=== PATIENT | female | born 1990 | race Caucasian/White ===

== ENCOUNTER 2024-11-24 16:47 | Emergency (ER) | payer OTHER, SELFPAY ==
[2024-11-24 16:55] VITALS: BP 129/85; PULSE 132; RESP 32; O2SAT 98; BMI 28.5
--- NOTE | 2024-11-24 17:08 | ED_ITS ---
HPI - General Adult General Chief complaint: Psychiatric Problem/Disorder Stated complaint: Mental Health Time Seen by Provider: 11/24/24 16:53 History of Present Illness HPI narrative: Patient is a 34-year-old woman who has a history of anxiety in sees a therapist. She does not take any medications but states that her anxiety depression is gotten somewhat worse and she is having hard time functioning. She has no chest pain shortness a breath orthopnea or PND. She has not had recent suicidal ideation. She has no history of any self-harm is not been a psychiatric facility in the past. Patient is safe at home and she is not using alcohol or street drugs. Related Data Previous Rx's ?Medication ?Instructions ?Recorded sertraline 25 mg tablet (Zoloft) 25 mg PO DAILY #30 ta bs 11/24/24 Allergies Allergy/AdvReac Type Severity Reaction Status Date / Time No Known Drug Allergies Allergy Verified 11/24/24 16:53 PFSH PFSH Social History Smoking Status: Never smoker Do you use any of these nicotine containing products: None How often do you have a drink containing alcohol: never AUDIT-C Alcohol total score: 0 Non-prescribed substance use: denies use Exam Narrative: Exam Narrative: EXAM GENERAL: Patient appears comfortable and well. EYES: No scleral icterus. LYMPH: No supraclavicular or cervical lymphadenopathy. SKIN: Visible skin seen during exam normal or with benign process only. EXT: No dependent lower extremity pedal edema. HEART: Regular rate and rhythm with no murmurs, rubs, or gallops. LUNGS: Clear to auscultation bilaterally with no crackles or wheezes. ABD: Soft, non tender, non distended. PSYCH: Good eye contact, speech is not pressured. Const: Vital Signs, click to edit/add: Vital Signs - 24 hr 11/24/24 16:55 Pulse Rate [Pulse Oximeter] 132 H Respiratory Rate 32 H Blood Pressure [Ri ght Upper Arm] 129/85 Pulse Oximetry 98 Oxygen Delivery Me thod Room Air Course Course ED Course: Patient seen examined. Toxicology workup underway. Psychiatric consultation obtained. Vital Signs Vital signs: Initial Vital Signs Pulse Rate 132 H 11/24/24 16:55 Respiratory Rate 32 H 11/24/24 16:55 Blood Pressure 129/85 11/24/24 16:55 Blood Pressure Mean 99 11/24/24 16:55 Pulse Oximetry 98 07/25/25 16:55 Oxygen Delivery Method Room Air 11/24/24 16:55 Vital Signs Pulse Rate 132 H 11/24/24 16:55 Respiratory Rate 32 H 11/24/24 16:55 Blood Pressure 129/85 11/24/24 16:55 Pulse Oximetry 98 11/24/24 16:55 Oxygen Delivery Method Room Air 11/24/24 16:55 Pulse Rate 132 H 11/24/24 16:55 Respiratory Rate 32 H 11/24/24 16:55 Blood Pressure 129/85 11/24/24 16:55 Pulse Oximetry 98 11/24/24 16:55 Oxygen Delivery Method Room Air 11/24/24 16:55 Medical Decision Making MDM Narrative Medical decision making narrative: Patient presents very anxious and depressed but not suicidal. I did have her see the behavioral health provider and we feel like the patient is safe to go home. Her toxicology workup is negative. She does see a therapist. At this time I did treated with short course of Ativan that she can take twice a day as needed and I did place her on Zoloft 25 mg daily. She will see me back in the office this week and will establish primary care and try to get her feeling better. She does contract for safety. Lab Data Labs: Lab Results 11/24/24 11/24/24 Range/Units 17:30 17:43 WBC 8.60 (4.50-11.00) K/uL RBC 4.53 (4.00-5.20) m/uL Hgb 12.8 (12.0-16.0) gm/dL Hct 38.4 (33.0-51.0) % MCV 85 (80-100) fL MCH 28 (26-34) pg MCHC 33 (32-36) gm/dL RDW Coeff of Silvano 11.8 (11.5-15.5) % Plt Count 259 (140-440) K/uL Neut % (Auto) 77.0 H (42.0-72.0) % Lymph % (Auto) 15.8 L (20-44) % [place] % (Auto) 4.7 (0.0-11.0) % Eos % (Auto) 2.1 (0.0-7.0) % Baso % (Auto) 0.3 (0.0-3.0) % Neut # (Auto) 6.60 (1.7-7.0) K/uL Lymph # (Auto) 1.40 (0.90-2.90) K/uL [place] # (Auto) 0.40 (0.00-0.90) K/UL Eos # (Auto) 0.18 (0.00-0.50) K/uL Baso # (Auto) 0.03 (0.00-0.30) K/uL Abs Immat Gran (auto) 0.01 (0.00-0.30) K/uL Imm/Tot Granulo (auto) 0.1 % Sodium 138 (135-149) mmol/L Potassium 4.1 (3.6-5.1) mmol/L Chloride 103 (96-114) mmol/L Carbon Dioxide 26 (20-32) mmol/L Anion Gap 9 (7-15) mEq/L BUN 10 (5-24) mg/dL Creatinine 0.8 (0.5-1.5) mg/dL Estimated Creat Clear 82.74 Estimated GFR 100 ml/min Glucose 99 (60-115) mg/dL Calcium 9.8 (8.4-10.6) mg/dL Total Bilirubin 0.7 (0.1-1.5) mg/dL AST 50 H (12-35) U/L ALT 16 (4-35) U/L Alkaline Phosphatase 70 (40-150) U/L Total Protein 8.3 (6.0-8.3) g/dL Albumin 4.6 (3.3-5.0) g/dL HCG, Qual Negative (Negative) Urine Color Yellow (Yellow) Urine Appearance Clear (Clear) Urine pH 6.5 (5.0-8.5) Ur Specific [place] 1.015 (1.000-1.030) Urine Protein Negative (Negative) Urine Glucose (UA) Negative (Negative) Urine Ketones 2+ A (Negative) Urine Blood Trace-intact A (Negative) Urine Nitrite Negative (Negative) Urine Bilirubin Negative (Negative) Urine Urobilinogen 0.2 (0.2-1.0) Ur Leukocyte Esterase 1+ A (Negative) Urine RBC 0-2 (0-2) Urine WBC 2-5 (0-5) Ur Squamous Epith Cells Moderate A (None-Few) Urine Bacteria Few A (None) Salicylates < 1.0 L (1.0-10) mg/dL Acetaminophen < 10.0 (10.0-30.0) ug/mL Ethyl Alcohol < 0.01 (0.01-0.03) % Discharge Plan Discharge Clinical Impression: Depression Patient Disposition: Home, Self-Care Condition: Stable Instructions: Depression (ED) Additional Instructions: Ativan twice daily as needed for severe symptoms. Zoloft as directed. Follow-up [facility] and this coming week. Return if symptoms worsen. Activity Level: No Restrictions Discharge Diet: Regular Prescriptions: New sertraline [Zoloft] 25 mg tablet 25 mg PO DAILY Qty: 30 2RF Follow Up/Referrals: Provider,Not a Local [Primary Care Provider, Family Practice] Stand Alone Forms: [employer] Info Instructions
--- OUTSIDE RECORDS SUMMARY | 2024-11-24 17:32 | XMS_ITS | Clinical Summary ---
Author Organization [facility] Address [address] [place] [address] Care Team Providers Care Risk Adjustment Specialist Name Role Phone Unavailable Primary Care Provider Unavailabl e Source Comments Patient records contain information from all sites at [facility]. For routine questions regarding patient records, call [phone] during business hours, M-F 8:00 AM - 5:00 PM Central Time. Record requests for emergency care only can be directed to [phone] at any time.[facility] Allergies No known active allergies Medications * This document contains information received from the source organization and may not represent a complete record from that organization. valACYclovir (VALTREX) 1000 mg tablet Take 2 tablets by mouth 2 (two) times a day. 05/04/2023 Active Isibloom 0.15-0.03 mg per tabletIndicatio ns:Management Contraceptive,P olycystic Ovary Syndrome TAKE 1 TABLET BY MOUTH DAILY 84 tablet 4 07/21/2024 Active Active Problems Problem Noted Date Diagnosed Date Body Mass Index 29.0 To 29.9 Adult 07/06/2023 Overview (07/06/2023): Rx for phentermine sent 04/23/2022. Weight 91 kg/BMI 35.55 on 04/16/2022. 05/28/2022: Weight 86.1 kg/BMI 33.65. 06/30/2022: Weight 84.0 kg. 12/25/2022: Weight 84.0 kg. One month supply of phentermine with 2 refills was faxed in to her pharmacy. 07/06/2023: Weight 85 kg/BMI 29.55. She has been off the phentermine since early May,. Continues to work with a geriatric personal care aide 2 times per week and monitor caloric intake, but has gained weight since discontinuing the phentermine and is frustrated. Lowest weight has been 81 kg, noted the beginning of May. She is interested in referral for further discussion and education as well as options for weight loss. Weight clinic referral to dietitian and mutuel clerk was ordered. She will schedule at her convenience. Preventive Gynecological Exam 04/18/2021 Overview (04/16/2022): Pap Smear: 04/16/2022 obtained and pending. No history of abnormal. Gonorrhea/Chlamydia Screen: Declined. Mammogram: Begin at age 40. Lipid panel: Ordered and scheduled. Diabetic screening: Ordered and scheduled. Colon screening: Begin at age 45. DEXA Scan: Begin at age 65. HPV Vaccine: Declined. Tdap Vaccine: 2017 Influenza Vaccine: 2021 at school. COVID-19 Vaccine: Moderna: 03/14/2021, 07/10/2020, 06/12/2020. COVID 19 booster: Moderna: 03/03/2022. - Discussed the importance of healthy diet and exercise for overall well-being. - Recommend at least 30 minutes of aerobic exercise most days of the week. - Recommend 1200 mg of calcium daily. 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 I will plan to call her at [phone] after 3:00 p.m. with her Pap smear and lab results. She is already received her flu shot for the year, at school. She is contemplating Human Papilloma Virus vaccination and will let me know if she desires initiation of this immunization. I recommend she return in 1 year for annual preventative health exam or sooner if she is any concerns or problems. Management Contraceptive 04/18/2021 Overview (09/10/2021): Experienced breakthrough bleeding on Seasonale. Switched to Apri 09/10/2021. Follow-up in 1 year or sooner with any concerns. Polycystic Ovary Syndrome 03/29/2019 Overview (04/16/2022): Managing effectively with her control pill. Resolved Problems Problem Noted Date Diagnosed Date Resolved Date Obesity Body Mass Index 30-39.9 Adult 04/23/2022 07/06/2023 Overview (07/06/2023): Rx for phentermine sent 04/23/2022. Weight 91 kg/BMI 35.55 on 04/16/2022. 05/28/2022: Weight 86.1 kg/BMI 33.65. 06/30/2022: Weight 84.0 kg. 12/25/2022: Weight 84.0 kg. One month supply of phentermine with 2 refills was faxed in to her pharmacy. 07/06/2023: Weight 85 kg/BMI 29.55. She has been off the phentermine since early May,. Continues to work with a geriatric personal care aide 2 times per week and monitor caloric intake, but has gained weight since discontinuing the phentermine and is frustrated. Lowest weight has been 81 kg, noted the beginning of May. She is interested in referral for further discussion and education as well as options for weight loss. Weight clinic referral to dietitian and mutuel clerk was ordered. She will schedule at her convenience. Immunizations Immunization Administration Dates Next Due Influenza, Injectable, Quadrivalent 02/04/2021 influenza vaccine quad (FLUZ ONE/FLUARIX) (6 months and older)(PF) 02/23/2020 Family History Medical History Relation Name Comments No Known Problems Father Heart disease Maternal Grandfather Thrombocytopenia Mother Lung disease Paternal Grandfather No Known Problems Paternal Grandmother No Known Problems Sister 1 Romy Endometriosis Sister 2 Asha Relation Name Status Comments Father Alive Maternal Grandfather Maternal Grandmother Mother Alive Paternal Grandfather Paternal Grandmother Alive Sister 1 Romy Alive Sister 2 Asha Alive Social History Tobacco Use Types Packs/Day Years Used Date Smoking Tobacco: Never Smokeless Tobacco: Never Tobacco Cessation:Counseling Given: Not Answered Alcohol Use Standard Drinks/Week Comments Yes 0 (1 standard drink = 0.6 oz pur e alcohol) Humiliation, Afraid, Rape, and Kick questionnair e Answer Date Recorded Within the last year, have y ou been afraid of your partner or ex-partner? No 10/15/2022 Within the last year, have y ou been humiliated or emotionally abused in other ways by your partner or ex-partner? No Within the last year, have y ou been kicked, hit, slapped, or otherwise physically hurt by your partner or ex-partner? No 10/15/2022 Within the last year, have y ou been raped or forced to have any kind of sexual activity by your partner or ex-partner? No 10/15/2022 Hunger Vital Sign Answer Date Recorded Within the past 12 months, y ou worried that your food would run out before you got the money to buy more. Never true 10/16/19 Within the past 12 months, t he food you bought just didn't last and you didn't have money to get more. Never true 10/15/2022 PRAPARE - Transportation Answer Date Re corded In the past 12 months, has l ack of transportation kept you from medical appointments or from getting medications? No 10/01 In the past 12 months, has l ack of transportation kept you from meetings, work, or from getting things needed for daily living? No 10/15/2022 Housing Stability Answer Date Recorded What is your living situation today? I have a [facility] place to live 10/15/2022 Comments No Sex and Gender Information Value Date Recorded Sex Assigned at Female 10/15/2022 1:21 PM CDT Legal Sex Female 2:22 PM STRADDLE TRUCK DRIVER Gender Identity Female 10/15/2022 1:21 PM CDT Sexual Orientation Bisexual 10/15/2022 1: 21 PM CDT Last Filed Vital Signs Vital Sign Reading Time Taken Comments Blood Pressure 110/76 07/06/2023 9:57 AM STRADDLE TRUCK DRIVER Pulse 70 10/19/2022 9:57 AM CDT Temperature - - Respiratory Rate 16 03/29/2019 8:44 AM STRADDLE TRUCK DRIVER Oxygen Saturation - - Inhaled Oxygen Concentration - - Weight 85 kg (187 lb 6.3 oz) 07/06/2023 9:57 AM STRADDLE TRUCK DRIVER Height 169.6 cm (5' 6.77) 10/19/2022 9:56 AM CD T Body Mass Index 29.55 10/19/2022 9:56 AM CDT Plan of Treatment Health Maintenance Due Date Last Done Comments HIV Screening 1990 Hepatitis C Screening 1990 DTaP,Tdap,and Td Vaccines (1 - Tdap) 07/04/2010 Hepatitis B Vaccines (1 of 3 - 19+ 3-dose series) 07/04/2010 HPV Vaccines (1 - 3-dose SCDM series) 07/04/2018 COVID-19 Vaccine ( season) 2024 03/03/2022, 03/14/2021, 07/10/2020, Additional history exists Depression Screening (Annual PHQ-2) 05/03/2024 Influenza Vaccine (#1) 2025 02/04/2021, 2019 Cervical/Vaginal Cancer Screening 04/16/2027 04/16/2022, 04/16/2022, 03/29/2019 IPV Vaccines Aged Out No longer eligi ble based on patient's age to complete this topic Pneumococcal vaccine (0-49 years) Aged Out No longer eligible based on patient's age to complete this topic Procedures Procedure Name Priority Date/Time Associated Diagnosis Comments THINPREP W/HPV CO-TEST SCREEN Routine 04/16/2022 3:39 PM STRADDLE TRUCK DRIVER Preventive Gynecological Exam from Last 3 Months or Most Recently Relevant to Health Maintenance Results * ThinPrep w/HPV Co-Test Screen (04/16/2022 3:39 PM STRADDLE TRUCK DRIVER) 04/23/2022 12:59 PM STRADDLE TRUCK DRIVER [facility] Report electronically signed by BARBRA Conn(ASCP) I verify that I have examined all relevant slides/materials for the specimen(s) and rendered or confirmed the diagnosis. 04/23/2022 12:59 PM STRADDLE TRUCK DRIVER [facility] Gross Description Received specimen in a ThinPrep vial. 04/23/2022 12:59 PM STRADDLE TRUCK DRIVER [facility] Pap Test Source Cervical/Endocervi candy 04/23/2022 12:59 PM STRADDLE TRUCK DRIVER [facility] Clinical History pap 04/23/20 12:59 PM STRADDLE TRUCK DRIVER [facility] Hormone Therapy/Contracep tives None/Not known 04/23/2022 12:59 PM STRADDLE TRUCK DRIVER [facility] Interpretation Cervical/Endocervi candy (ThinPrep): Satisfactory for Evaluation Negative for Intraepithelial Lesion or Malignancy High Risk HPV: Negative Negative for High Risk HPV by nucleic acid amplification. The following High Risk HPV types were not detected: 16, 18, 31, 33, 35, 39, 45, 51, 52, 56, 58, 59, 66, and 68. 04/23/2022 12:59 PM STRADDLE TRUCK DRIVER [facility] Thin Prep Vial (Cervix/Endocerv ix) 04/16/2022 3:39 PM STRADDLE TRUCK DRIVER 04/17/2022 6:21 AM STRADDLE TRUCK DRIVER us Tavia Hennessy APRN, C.N.P. LAB PAP PATHDX OR DERABLES Final Result [facility] [address] [place] [address], [place] [facility] [address] [place] [address] from Last 3 Months or Most Recently Relevant to Health Maintenance
[2024-11-24 17:39] LABS: Appearance Urine Clear (Clear)
[2024-11-24 18:02] LABS: Hematocrit* 38.4 % (33.0-51.0); Hemoglobin* 12.8 gm/dL (12.0-16.0); Immature Granulocytes Abs Auto 0.01 K/uL (0.00-0.30); Immature Granulocytes Pct Auto 0.1 %; Mean Corpuscular HGB Conc 33 gm/dL (32-36); Mean Corpuscular Hemoglobin 28 pg (26-34); Mean Corpuscular Volume 85 fL (80-100); RDW Coefficient of Variation % 11.8 % (11.5-15.5); Red Blood Count* 4.53 m/uL (4.00-5.20); White Blood Count* 8.60 K/uL (4.50-11.00)
[2024-11-24 18:09] LABS: Albumin* 4.6 g/dL (3.3-5.0); Chloride* 103 mmol/L (96-114); Sodium* 138 mmol/L (135-149)
[2024-11-24 18:10] LABS: Potassium* 4.1 mmol/L (3.6-5.1)
[2024-11-24 18:12] LABS: Alanine Aminotransferase* 16 U/L (4-35); Alkaline Phosphatase* 70 U/L (40-150); Anion Gap 9 mEq/L (7-15); Aspartate Amino Transferase* 50 U/L (12-35); Bilirubin Total* 0.7 mg/dL (0.1-1.5); Blood Urea Nitrogen* 10 mg/dL (5-24); Calcium* 9.8 mg/dL (8.4-10.6); Carbon Dioxide* 26 mmol/L (20-32); Creatinine* 0.8 mg/dL (0.5-1.5); Est. Creatinine Clearance* 82.74; Estimated Glomerular Filt Rate 100 ml/min; Glucose* 99 mg/dL (60-115); Total Protein* 8.3 g/dL (6.0-8.3)
[2024-11-24 18:22] LABS: Lymphocytes Absolute Auto 1.40 K/uL (0.90-2.90); Slide Review Reflex No
[2024-11-24 18:27] LABS: Acetaminophen* < 10.0 ug/mL (10.0-30.0); Ethanol* < 0.01 % (0.01-0.03); Salicylate* < 1.0 mg/dL (1.0-10)
[2024-11-24 18:58] LABS: HCG Qualitative Serum* Negative (Negative)
== END 2024-11-24 20:00 | disposition home or self-care (01) ==
PROVIDERS: Emergency Provider Internal Medicine
DX: F32.A Depression, unspecified (principal)
CPT/HCPCS: 36415; 80053; 80143; 80179; 81001; 81003; 82077; 84703; 85025; 87086; 99283